=== PATIENT | male | born 1975 | race African-American/Black ===

== ENCOUNTER 2017-12-09 01:38 | Emergency (ER) | payer OTHER ==
[~2017-12-09] VITALS: Ht 182.9 cm; Wt 81.7 kg
[~2017-12-09 01:38] MED LIST: ACCUNEB SO1.25 MG/1; ACETAMINOPHEN500 M2 PO; ALEVE220 MG PO; AUGMENTIN 875-1 EACH PO; AUGMENTIN 875875 MG PO; COLACE100 MG PO; CREON DR 36,001 EACH PO; HYDROCODONE-AP1 EAC6 PO; MIRALAX17 G1 PO; MIRALAX17 GM PO; NICOTINE TRANSD14 M1 TRANSDERM; NOHOMEMEDICATIONS; OXYCONTIN10 M1 PO; OXYCONTIN20 M1 PO; PERCOCET 10-321 EAC1 PO; PERCOCET 7.5-31 EACH PO; TYLENOL325 MG PO; ZENPEP DR 20,01 EACH PO; ZOFRAN ODT4 MG PO; ZPAK PO
[2017-12-09 02:24] LABS: ABSOLUTE BASOPHILS 0.1 thou/uL (0.0-0.2); ABSOLUTE EOSINOPHILS 0.2 thou/uL (0.0-0.7); ABSOLUTE LYMPHOCYTES 2.5 thou/uL (0.8-5.3); ABSOLUTE NEUTROPHILS 8.2 thou/uL (1.6-8.1); BASOPHILS 0.6 %; EOSINOPHILS 1.7 %; HEMATOCRIT 35.7 % (42.0-52.0); HEMOGLOBIN 12.2 gm/dL (14.0-18.0); LYMPHOCYTES 21.3 %; MCH 31.3 pg (26.0-34.0); MCHC 34.2 g/dL (28.0-37.0); MCV 91.8 fL (80.0-100.0); MONOCYTES 8.3 %; MPV 7.6 fl. (7.2-11.1); NUCLEATED RBCS 0 /100WBC; PLATELET COUNT* 169 thou/uL (150-400); POLYS 68.1 %; RBC 3.89 mil/uL (4.50-6.00); RDW-CV 14.4 % (10.5-14.5)
[2017-12-09 02:28] LABS: CALCIUM 8.9 mg/dL (8.5-10.1); CREATININE 1.5 mg/dL (0.6-1.3); POTASSIUM 4.1 mmol/L (3.5-5.1)
[2017-12-09 02:33] LABS: ALBUMIN 3.2 g/dL (3.4-5.0); TOTAL BILIRUBIN 0.4 mg/dL (<0.1-1.0)
[2017-12-09] MEDS ORDERED: PERCOCET 5-3251 EACH PO (03:50)
[2017-12-09 04:06] VITALS: BP 117/74
--- NOTE | 2017-12-09 10:34 | EKG ---
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
== END 2017-12-09 04:10 | disposition home or self-care (01) ==
LOC: M.ERS 01:38
PROVIDERS: Family Medicine
DX: R10.13 Epigastric pain (principal); F17.210 Nicotine dependence, cigarettes, uncomplicated